=== PATIENT | female | born 1965 | race Two or more races ===

== ENCOUNTER 2024-09-10 18:40 | Emergency (ER) | payer BC ==
[~2024-09-10] VITALS: Ht 160 cm; Wt 61.7 kg
[2024-09-10] MEDS ORDERED: KETOROLAC TROMETHAMINE 60 MG VIAL IM ONE ×2 (19:45→19:51)
== END 2024-09-10 21:54 ==
LOC: ER 18:42
DX: S52.592A Other fractures of lower end of left radius, initial encounter for closed fracture (principal); W18.39XA Other fall on same level, initial encounter; Y93.89 Activity, other specified; Y92.838 Other recreation area as the place of occurrence of the external cause